=== PATIENT | male | born 1945 | race Caucasian/White ===

== ENCOUNTER → 2017-10-30 06:53 | Outpatient (CLI) | payer OTHER, SELFPAY ==
--- NOTE | 2017-10-30 | DI.MRI.S_ITS ---
PROCEDURE: MR LUMBAR SPINE WO CON INDICATIONS: LUMBAR RADICULOPATHY TECHNIQUE: Noncontrast sagittal T1 spin echo and T2 fast echo, sagittal STIR, axial T1 and T2 fast spin echo through the lumbar spine. In cases with scoliosis, additional coronal T2 fast spin echo may be performed. COMPARISON: None. FINDINGS: Image quality: Excellent. Alignment and Curvature: There is trace L4-L5 and mild L5-S1 anterolisthesis secondary to facet hypertrophy. Bone Marrow: Mild reactive endplate changes noted adjacent to the L4-L5 disc. No acute vertebral body compression fractures. Spinal Cord: Conus medullaris terminates at the L2 level. Visualized cord demonstrates normal signal and size. Paraspinous Soft Tissues: No paravertebral masses. T12-L1: Loss of the signal. Mild, diffuse disc bulge. Right central disc protrusion. Mild bilateral facet hypertrophy. Mild narrowing of the central canal. Mild right neural foraminal narrowing. No neural impingement. L1-L2: Loss of disc signal. Mild, diffuse disc bulge. Mild bilateral facet hypertrophy. Mild narrowing of the central canal. Mild bilateral neural foraminal narrowing. No neural impingement. L2-L3: Loss of disc signal. Mild diffuse disc bulge. Mild right and moderate left facet hypertrophy. Mild narrowing of the central canal. Mild left neural foraminal narrowing. No neural impingement. L3-L4: Loss of the signal. Moderate bilateral facet hypertrophy. Mild narrowing of the central canal. No neural foraminal narrowing. No neural impingement. L4-L5: Loss of the signal. Moderate, diffuse disc bulge severe facet and moderate ligamentum flavum hypertrophy. Severe central canal stenosis. Moderate to severe right and severe left neural foraminal narrowing with flattening deformity the exiting left L4 nerve root. L5-S1: Loss of disc signal and slight loss of disc height. Mild, diffuse disc bulge and severe bilateral facet hypertrophy. Mild narrowing of the central canal. Severe right and moderate left neural foraminal narrowing with flattening deformity the exiting right L5 nerve root. Focal high intensity zone noted in the posterior annulus compatible with a fissure. IMPRESSION: 1. Grade I L4-L5 and L5-S1 degenerative spondylolisthesis. 2. Multilevel degenerative disc disease. 3. Multilevel facet arthropathy. 4. Severe L4-L5 central canal stenosis. Mild T12-L1, L1-L2, L2-L3, L3-L4 and L5-S1 central canal narrowing. 5. Moderate to severe right and severe left L4-L5 neural foraminal narrowing. Severe right and moderate left L5-S1 neural foraminal narrowing. The mild bilateral L1-L2 neuroforaminal narrowing. Mild right T12-L1 neural foraminal narrowing. Mild left L2-L3 neural foraminal narrowing. 6. Flattened deformity of the exiting left L4 nerve root and the exiting right L5 nerve root secondary to neural foraminal narrowing. Dictated by: Tawnya Bro MD, PhD on 10/30/2017 at 10:49 Approved by: Tawnya Bro MD, PhD on 10/30/2017 at 10:56
== END ==
PROVIDERS: Visit Provider Internal Medicine
DX: M51.16 Intervertebral disc disorders with radiculopathy, lumbar region (principal); M43.16 Spondylolisthesis, lumbar region; M43.17 Spondylolisthesis, lumbosacral region; M47.26 Other spondylosis with radiculopathy, lumbar region; M48.061 Spinal stenosis, lumbar region without neurogenic claudication; M48.07 Spinal stenosis, lumbosacral region
CPT/HCPCS: 72148